=== PATIENT | female | born 1955 | race Caucasian/White ===

== ENCOUNTER 2021-01-20 13:27 | Emergency (ER) | payer MEDICARE, OTHER ==
[~2021-01-20] VITALS: Ht 154.9 cm; Wt 78.0 kg
[~2021-01-20 13:27] MED LIST: ASPI-1444 PO; ATOR40TA28 PO; CARV12 PO; GABA-1216 PO; LORA10TA7 PO; METF-446 PO; PANT-31 PO; PIOG15TA6 PO; SITA100 PO
[2021-01-20] MEDS ORDERED: LIDOCAINE 5% TRANSDERMAL PATCH TD ONE (14:00)
[2021-01-20] MEDS ORDERED: ACETAMINOPHEN 500 MG TABLET PO ONE (14:00)
[2021-01-20 16:30] VITALS: BP 133/80
== END 2021-01-20 17:20 | disposition home or self-care (01) ==
LOC: EDUNIT# 13:27 → EMS 13:36
DX: S22.32XA Fracture of one rib, left side, initial encounter for closed fracture (principal); W19.XXXA Unspecified fall, initial encounter; Y93.89 Activity, other specified; Y92.89 Other specified places as the place of occurrence of the external cause; Y99.8 Other external cause status
CPT/HCPCS: 71101; 82962; 99283; G0238

== ENCOUNTER 2023-03-01 16:54 | Emergency (ER) | payer MEDICARE, OTHER ==
[~2023-03-01] VITALS: Ht 157.5 cm; Wt 68.2 kg
[2023-03-01 17:08] VITALS: TEMP 97.9
[2023-03-01 19:51] VITALS: BP 129/65; PULSE 55; RESP 16
[2023-03-01] MEDS ORDERED: IBUPROFEN 200 MG TABLET PO ONE (21:15)
[2023-03-01] MEDS ORDERED: IBUPROFEN 400 MG TABLET PO ONE (21:15)
[2023-03-01] MEDS ORDERED: IBUP-45 PO (21:27)
[2023-03-01] MEDS ORDERED: ACET-66 PO (21:27)
== END 2023-03-01 21:42 | disposition home or self-care (01) ==
LOC: EMS 17:36
DX: S83.91XA Sprain of unspecified site of right knee, initial encounter (principal); S80.01XA Contusion of right knee, initial encounter; W01.0XXA Fall on same level from slipping, tripping and stumbling without subsequent striking against object, initial encounter; Y93.89 Activity, other specified; Y92.89 Other specified places as the place of occurrence of the external cause; Y99.8 Other external cause status
CPT/HCPCS: 29505; 99283